=== PATIENT | female | born 2000 | race Caucasian/White ===

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

== ENCOUNTER 2018-07-26 17:08 | Emergency (ER) | payer OTHER ==
[~2018-07-26] VITALS: Ht 165.1 cm; Wt 103.9 kg
[2018-07-26 17:20] VITALS: Ht 165.1 cm; Wt 103.9 kg
[2018-07-26 18:43] VITALS: BP 129/87
== END 2018-07-26 18:43 | disposition home or self-care (01) ==
LOC: ED 17:08
DX: L60.0 Ingrowing nail (principal)
CPT/HCPCS: J2001

== ENCOUNTER 2018-07-29 18:39 | Emergency (ER) | payer OTHER ==
[~2018-07-29] VITALS: Ht 167.6 cm; Wt 101.6 kg
[2018-07-29 18:55] VITALS: Ht 167.6 cm; Wt 101.6 kg
[2018-07-29 19:35] VITALS: BP 122/77
== END 2018-07-29 19:35 | disposition home or self-care (01) ==
LOC: ED 18:39
DX: L03.032 Cellulitis of left toe (principal)

== ENCOUNTER 2019-02-04 20:37 | Emergency (ER) | payer OTHER ==
[~2019-02-04] VITALS: Ht 165.1 cm; Wt 98.2 kg
[2019-02-04 20:54] VITALS: Ht 165.1 cm; Wt 98.2 kg
[2019-02-04 22:29] VITALS: BP 143/86
== END 2019-02-04 22:29 | disposition home or self-care (01) ==
LOC: ED 20:37
DX: J40 Bronchitis, not specified as acute or chronic (principal)
CPT/HCPCS: Q0092

== ENCOUNTER 2019-09-18 16:46 | Emergency (ER) | payer OTHER ==
[~2019-09-18] VITALS: Ht 165.1 cm; Wt 93.9 kg
[2019-09-18 17:15] VITALS: Ht 165.1 cm; Wt 93.9 kg
[2019-09-18 18:54] LABS: CALCIUM 9.1 mg/dL (8.5-10.1); CARBON DIOXIDE 26.1 mmol/L (21-32); CHLORIDE SERUM 103 mmol/L (98-107); CREATININE SERUM 0.8 mg/dL (0.6-1.0); GFR1 > 60 mL/min; GLUCOSE SERUM 98 mg/dL (74-106); POTASSIUM SERUM 3.8 mmol/L (3.5-5.1); SODIUM SERUM 135 mmol/L (136-145)
[2019-09-18 18:59] LABS: ALBUMIN 3.2 g/dL (3.4-5.0); ALKALINE PHOSPHATASE 38 U/L (46-116); ALT/SGPT 18 U/L (14-59); AST/SGOT 17 U/L (15-37); BILIRUBIN TOTAL 0.28 mg/dL (0.20-1.00); TOTAL PROTEIN, SERUM 7.5 g/dL (6.4-8.2)
[2019-09-18 19:03] LABS: BASOPHIL % 0.2 % (0-2); PLATELET COUNT 248 x10^3mcL (130-400)
[2019-09-18 21:53] VITALS: BP 132/74
== END 2019-09-18 21:53 | disposition home or self-care (01) ==
LOC: ED 16:46
PROVIDERS: Emergency Medicine
DX: O23.42 Unspecified infection of urinary tract in pregnancy, second trimester (principal); Z3A.15 15 weeks gestation of pregnancy
CPT/HCPCS: J2765; J7030; Q0092